=== PATIENT | male | born 1995 | race Caucasian/White ===

== ENCOUNTER 2019-08-10 22:40 | Emergency (ER) | payer SELFPAY ==
[~2019-08-10] VITALS: Ht 185.4 cm; Wt 80.0 kg
[2019-08-10] MEDS ORDERED: LIDOCAINE-MPF 2% ,5ML ONE (23:08)
[2019-08-10] MEDS ORDERED: LIDOCAINE 2%, 20ML SQ ONE (23:30)
[2019-08-10] MEDS ORDERED: NEOSPORIN OINT. PKT 1 PACKET ONE (23:57)
[2019-08-11 00:35] VITALS: BP 141/82
== END 2019-08-11 00:37 | disposition home or self-care (01) ==
LOC: ED 22:55
DX: S01.01XA Laceration without foreign body of scalp, initial encounter (principal); S20.212A Contusion of left front wall of thorax, initial encounter; S60.512A Abrasion of left hand, initial encounter; R07.89 Other chest pain; Y04.8XXA Assault by other bodily force, initial encounter; Y93.89 Activity, other specified; Y92.009 Unspecified place in unspecified non-institutional (private) residence as the place of occurrence of the external cause; Y99.8 Other external cause status
CPT/HCPCS: 12032; 99284